=== PATIENT | female | born 1950 | race Caucasian/White ===

== ENCOUNTER → 2018-09-26 | Outpatient (CLI) | payer MEDICARE ==
--- NOTE | 2018-09-26 12:45 | PCVCIMAG ---
APPROVED REPORT Study performed: 09/26/2018 09:56:30 EXAM: Comprehensive 2D, Doppler, and color-flow Echocardiogram Patient Location: Echo lab Status: routine BSA: 2.16 HR: 72 bpmBP: 128/78 mmHg Rhythm: APC's Other Information Study Quality: Adequate Indications Arrhythmia Radiation Atherosclerosis 2D Dimensions IVSd: 10.32 (7-11mm)LVOT Diam: 20.00 (18-24mm) LVDd: 46.40 mm PWd: 10.46 (7-11mm)Ascending Ao: 32.84 (22-36mm) LVDs: 33.00 (25-40mm) Left Atrium: 37.39 (27-40mm) Aortic Root: 31.08 mm LV Single Plane 4CH: 46.05 % LV Single Plane 2CH: 51.39 % Volumes Left Atrial Volume (Systole) Single Plane 4CH: 73.32 mLSingle Plane 2CH: 58.87 mL LA ESV Index: 33.00 mL/m2 Aortic Valve AoV Peak Lonny.: 1.39 m/s AO Peak Gr.: 7.72 mmHgLVOT Max P.59 mmHg LVOT Max V: 0.95 m/s HUI Vmax: 2.14 cm2 Pulmonary Valve PV Peak Lonny.: 1.03 m/sPV Peak Gr.: 4.20 mmHg Tricuspid Valve RAP Estimate: 7.00 mmHg Left Ventricle The left ventricle is normal size. There is normal LV segmental wall motion. There is normal left ventricular wall thickness. Left ventricular systolic function is mildly decreased. LVEF is 50%. This study is not technically sufficient to allow evaluation of the LV diastolic function due to arrhythmias. Right Ventricle The right ventricle is normal size. The right ventricular systolic function is normal. Atria The left atrium size is normal. The right atrium size is normal. Aortic Valve The aortic valve is normal in structure. No aortic regurgitation is present. There is no aortic valvular stenosis. Mitral Valve There is mitral annular calcification. There is no mitral valve regurgitation noted. No evidence of mitral valve stenosis. Tricuspid Valve The tricuspid valve is normal in structure. There is no tricuspid valve regurgitation noted. Pulmonic Valve The pulmonary valve is normal in structure. Trace pulmonic regurgitation. Great Vessels The aortic root is normal in size. IVC is normal in size and collapses >50% with inspiration. Pericardium There is no pericardial effusion. <Conclusion> The left ventricle is normal size. LVEF is 50%. The aortic valve is normal in structure. There is mitral annular calcification. The tricuspid valve is normal in structure. The pulmonary valve is normal in structure. Trace pulmonic regurgitation. There is no pericardial effusion.
== END | disposition home or self-care (01) ==
LOC: PCVCIMAG 09:58
PROVIDERS: ATTEND Internal Medicine
DX: I25.10 Atherosclerotic heart disease of native coronary artery without angina pectoris (principal); I49.9 Cardiac arrhythmia, unspecified; I49.3 Ventricular premature depolarization
CPT/HCPCS: 93306